=== PATIENT | male | born 1985 | race Caucasian/White ===

== ENCOUNTER 2024-09-08 10:10 | Day surgery (SDC) | payer MEDICAID, SELFPAY ==
--- NOTE | 2024-09-04 07:00 | EKG_ITS ---
[facility] Test Date: 2024-09-04 Pat Name: JOSEE VIDAL Department: Room: - Gender: Male Studio Manager: JESUS : 1985 Requested By: Gerri Gutierres Order Number: [id number] Reading MD: Gerri Gutierres Measurements Intervals [place] Rate: 69 P: 65 PA: 160 QRS: 61 QRSD: 128 T: 40 QT: 372 QTc: 401 Interpretive Statements SINUS RHYTHM RIGHT BUNDLE BRANCH BLOCK No previous ECG available for comparison /store/S0/[id number]/ecg/[id number]
[2024-09-04 07:49] VITALS: BMI 27.3
[2024-09-04 09:03] LABS: Basophils % (Auto) 1 % (0-2.5); Eosinophils # (Auto) 0.2 Thou/mm3 (0.0-0.5); Eosinophils % (Auto) 3 % (0-10); Hematocrit 43.7 % (41.0-53.0); Hemoglobin 15.2 g/dL (13.5-16.0); Immature Granulocytes % (Auto) 0 % (0-0); Immature Granulocytes Auto 0.02 Thou/mm3 (0.00-0.00); Lymphocytes # (Auto) 1.9 Thou/mm3 (1.0-4.8); Lymphocytes % (Auto) 32 % (10-50); Mean Corpuscular HGB Conc 34.8 g/dl (31.0-37.0); Mean Corpuscular Hemoglobin 31.6 pg (25.0-35.0); Mean Corpuscular Volume 91 fL (80-100); Monocytes # (Auto) 0.5 Thou/mm3 (0.0-0.8); Monocytes % (Auto) 9 % (0-12); Neutrophils # (Auto) 3.4 Thou/mm3 (1.8-7.7); Neutrophils % (Auto) 56 % (37-80); Nucleated Red Blood Cell % 0 /100 WBC (0); Platelet Count 254 Thou/mm3 (140-440); Red Blood Count 4.81 Miln/mm3 (4.50-5.90)
[2024-09-04 09:19] LABS: Anion Gap 5 (7-16); BUN/Creatinine Ratio 10 Ratio (12-20); Blood Urea Nitrogen 10 mg/dL (9-23); Calcium 10.3 mg/dL (8.3-10.6); Carbon Dioxide 29.8 mMol/L (20.0-31.0); Chloride 104 mMol/L (98-107); Estimated Creatinine Clearance 94.6 mL/min (>60); Glucose 106 mg/dL (74-106); Osmolality,Calculated 276 (275-295); Potassium 4.4 mMol/L (3.4-5.1); Sodium 139 mMol/L (136-145); eGFR > 60 See Note
[2024-09-08] VITALS (8 sets, daily range): BP systolic 124–140; BP diastolic 80–100; PULSE 77–117; RESP 12–20; TEMP 36.2–37.3; O2SAT 94–100; BMI 27.4
--- NOTE | 2024-09-08 10:53 | CHAP ---
Prayed with patient before upcoming procedure and gave words of encouragement.
[2024-09-08] MEDS: RINGERS LACTATED 500 ML 500 ML 20 ML IV (11:22)
--- NOTE | 2024-09-08 13:14 | PD.SUROPNT ---
Date of Procedure 09/08/24 Pre Op Diagnosis Incarcerated right inguinal hernia Post Op Diagnosis Incarcerated indirect right inguinal hernia Procedure Right inguinal hernia repair with mesh Findings Indirect right inguinal hernia with incarcerated small bowel Procedure Description Patient brought into the operating room in supine position. After administration of general endotracheal anesthesia, patient's right groin was shaved, prepped and draped in standard surgical manner. The right inguinal crease was anesthetized with half percent Marcaine. An approximately 8 cm incision was made and dissection was carried to subcutaneous tissue. The Rachel's fascia was divided and the external oblique aponeurosis was opened towards the external ring. The hernia sac and the spermatic cord structures were from the posterior aspect of the external oblique aponeurosis at the level of pubic tubercle. The hernia sac was then meticulously dissected off the spermatic cord structures at the level of internal ring. The hernia sac was opened and the contents that were incarcerated small bowel, reduced. The hernia sac was then ligated at the level of internal ring. The floor of inguinal canal was then reconstructed with ultra Pro proceed mesh. The mesh was secured with running 2-0 Prolene suture. The mesh secured medially to the pubic tubercle, superiorly into the conjoin tendon, inferiorly and to the shelving edge of inguinal ligament, the mesh was placed around the cord structures and tacked under the external oblique aponeurosis laterally. The area was copiously and thoroughly washed and irrigated, all the fluids were suctioned and the suction fluid returned clear. Hemostasis was adequate and satisfactory. External oblique aponeurosis was closed with running 2-0 Vicryl suture, and Rachel's fascia was closed with interrupted suture using 3-0 Vicryl. The incision was closed with 4-0 Monocryl in subcutaneous fashion. Instruments, needles and sponge counts were reported to be correct ?2. Patient tolerated the procedure well. He was extubated, breathing spontaneously and without difficulty and was transferred to postanesthesia care in stable condition. Anesthesia GETA and local Pathology / specimen Other (Hernia sac) Estimated Blood Loss 10 Condition Stable Disposition PACU Surgeon Gerri Gutierres MD Surgical Staff Operation Date: 09/08/24 12:30 Case Staff Anesthesiologist: Jasile Cano RNcertified control systems technician: Ashlyn Ornelas
--- NOTE | 2024-09-08 13:23 | SUR.PHASEI ---
1323: Pt. AAOx4, vitals stable, breathing unlabored, no complaint of pain or nausea, dressing to lower ABD CDI, no active bleed noted, report received from MD Cano and Jaci KNAPP.
--- NOTE | 2024-09-08 14:23 | SUR.PHASEII ---
1423: Pt. AAOx4, vitals stable, breathing unlabored, no complaint of pain or nausea, dressing to lower ABD CDI, no active bleed noted, pt. tolerated sips of water well, pt. ambulated to wheelchair with steady gait and no assist, no complications. Gave discharge instructions to the pt. and her ride, both verbalized understanding and had no further questions. Pt. left with all personal belongings.
== END 2024-09-08 14:23 | disposition home or self-care (01) ==
PROVIDERS: PCP Family Medicine; Referring Provider Surgery; Visit Provider Surgery
PROC: (CPT 49507; principal; 2024-09-08 12:30)
DX: K40.30 Unilateral inguinal hernia, with obstruction, without gangrene, not specified as recurrent (principal); Z01.810 Encounter for preprocedural cardiovascular examination
CPT/HCPCS: 49507; 36415; 80048; 85025; 93005; A4649; C1781; J0131; J0690; J1100; J2704; J2710; J2765; J3010; J3490; J7120; P9045; J1596

== ENCOUNTER 2025-04-07 20:30 | Emergency (ER) | payer MEDICAID, SELFPAY ==
[2025-04-07 20:32] VITALS: BMI 27.3
[2025-04-07 21:10] VITALS: BP 143/94; PULSE 67; RESP 18; TEMP 36.7; O2SAT 98
--- NOTE | 2025-04-07 21:16 | PD.EDRME ---
Rapid Medical Screening Exam RME Arrival date/time: 04/07/25 20:30 Chief Complaint: Back Pain/Injury Time Seen by Provider: 04/07/25 21:31 Vital signs: Vital Signs Temperature 98.1 F 04/07/25 21:10 Pulse Rate 67 04/07/25 21:10 Respiratory Rate 18 04/07/25 21:10 Blood Pressure 143/94 H 04/07/25 21:10 Pulse Oximetry (%) 98 04/07/25 21:10 Oxygen Delivery Method Room Air 04/07/25 21:10 Pulse ox is 98% room air Vital signs reviewed by provider: Yes RME Narrative: Patient developed right flank pain that began this afternoon. Upon returning home patient noticed a bloody urine.
--- NOTE | 2025-04-07 21:17 | XR_ITS ---
Examination: CT abdomen and pelvis without contrast. Coronal 3-D reconstructions. Sagittal 2-D reconstructions. Date and time of exam:April 07, 2025, 10:53 PM. INDICATIONS: Flank pain and hematuria today. CTDI: vol (mGy): 7.01. DLP: (mGycm): 420 Technique: Axial images of the abdomen have been obtained, 3 mm slice thickness Intravenous contrast material has not been administered. Low dose protocols were performed. One or more of the following dose reduction techniques were used; automated exposure control, adjustment of the mA and/or KV according to patient size, use of iterative reconstruction technique. Findings: No focal liver or splenic lesions No definite gallstones No pancreatic or adrenal mass 2 mm lower pole left renal calculus Minimal right hydronephrosis secondary to 2 mm proximal right ureteral calculus Normal appendix No bowel obstruction No bladder mass No prostatomegaly IMPRESSION: Minimal right hydronephrosis secondary to 2 mm proximal right ureteral calculus
[2025-04-07] MEDS: KETOROLAC INJ 60 MG/2 ML VIAL 30 MG IM (21:30)
[2025-04-07 21:57] LABS: Basophils % (Auto) 0 % (0-2.5); Eosinophils % (Auto) 0 % (0-10); Hematocrit 42.4 % (41.0-53.0); Hemoglobin 15.7 g/dL (13.5-16.0); Immature Granulocytes % (Auto) 0 % (0-0); Immature Granulocytes Auto 0.04 Thou/mm3 (0.00-0.00); Lymphocytes % (Auto) 8 % (10-50); Mean Corpuscular Hemoglobin 32.2 pg (25.0-35.0); Mean Corpuscular Volume 87 fL (80-100); Monocytes # (Auto) 0.4 Thou/mm3 (0.0-0.8); Monocytes % (Auto) 3 % (0-12); Neutrophils # (Auto) 10.8 Thou/mm3 (1.8-7.7); Neutrophils % (Auto) 88 % (37-80); Nucleated Red Blood Cell % 0 /100 WBC (0); Platelet Count 244 Thou/mm3 (140-440); RDW Standard Deviation 38.5 fL (35.1-43.9); Red Blood Count 4.87 Miln/mm3 (4.50-5.90); White Blood Count 12.3 Thou/mm3 (3.8-10.6)
[2025-04-07 22:14] LABS: Alanine Aminotransferase 26 U/L (10-49); Albumin, Serum 5.1 gm/dL (3.5-5.0); Albumin/Globulin Ratio 2.2 (1.2-2.2); Alkaline Phosphatase 89 U/L (46-116); Anion Gap 13 (7-16); Aspartate Amino Transferase 24 U/L (0-34); BUN/Creatinine Ratio 8 Ratio (12-20); Bilirubin,Total 1.3 mg/dL (0.3-1.2); Blood Urea Nitrogen 10 mg/dL (9-23); Calcium 9.7 mg/dL (8.3-10.6); Calcium (Corrected) 9.7 mg/dL (8.5-10.1); Carbon Dioxide 24.2 mMol/L (20.0-31.0); Chloride 105 mMol/L (98-107); Creatinine (Component) 1.2 mg/dL (0.6-1.3); Estimated Creatinine Clearance 84.3 mL/min (>60); Globulin 2.3 gm/dL (2.3-3.5); Glucose 130 mg/dL (74-106); Osmolality,Calculated 284 (275-295); Potassium 4.1 mMol/L (3.4-5.1); Sodium 142 mMol/L (136-145); Total Protein 7.4 gm/dL (5.7-8.2); eGFR > 60 See Note
[2025-04-07 23:49] LABS: Collection Type, Urine Clean Catch; Squamous Epithelial Cell,Urine 0 /hpf (0-5); WBC,Urine 0 /hpf (0-5)
[2025-04-08 00:11] LABS: Bacteria,Urine Rare; Bilirubin,Urine Negative (Negative); Blood,Urine 3+ (Negative); Clarity,Urine Turbid (Clear/Hazy); Glucose, Urine Negative (Negative); Ketones,Urine 3+ (Negative); Leukocyte Esterase,Urine Negative (Negative); Nitrite,Urine Negative (Negative); PH,Urine 6.5 (5.0-7.0); Protein,Urine 3+ (Neg - Trace); RBC,Urine 571 /hpf (0-3); Specific Gravity,Urine 1.036 (1.001-1.035); Urobilinogen,Urine Negative mg/dL (0.0-1.0)
[2025-04-08 00:12] LABS: Color,Urine Yellow (Lt Yel-Yel)
--- NOTE | 2025-04-08 00:26 | PD.EDBACK ---
ED Back Injury Pain RME/HPI General Chief Complaint: Back Pain/Injury Stated Complaint: R FLANK PAIN URINATING BLOOD Time Seen by Provider: 04/07/25 21:31 Arrival date/time: 04/07/25 20:30 RME / HPI RME / HPI Narrative: Patient developed right flank pain that began this afternoon. Upon returning home patient noticed a bloody urine. DR VELA MAIN ED EVALUATION: 39 y/o male with Hx of kidney stones presents to ED c/o right flank pain, hematuria, chills, and nausea x 12 hours. Patient denies dysuria or any other associated symptoms or aggravating factors. No modifying factors, no radiation, no migration. No pain reported overall after medication. No other concerns or complaints expressed at this time. Related Data Home Medications ?Medication ?Instructions ?Recorded ?Confirmed atorvastatin 20 mg tablet 20 mg PO DAILY 09/04/24 09/04/24 Previous Rx's ?Medication ?Instructions ?Recorded docusate sodium 100 mg capsule 100 mg PO BID #40 caps 09/08/24 (Colace) hydrocodone 5 mg-acetaminophen 325 1 tab PO Q6H PRN pain (scale score 09/08/24 mg tablet 7-10) #20 tabs ibuprofen 600 mg tablet 600 mg PO Q8H PRN pain (scale 09/08/24 score 4-6) #15 tabs hydrocodone 5 mg-acetaminophen 325 1 tab PO Q6H PRN pain #10 tabs 04/08/25 mg tablet ibuprofen 600 mg tablet 600 mg PO Q6H PRN pain #30 tabs 04/08/25 tamsulosin 0.4 mg capsule 0.4 mg PO QDAY #14 caps 04/08/25 Allergies Allergy/AdvReac Type Severity Reaction Status Date / Time NKA* Allergy Uncoded 04/07/25 20:37 Review of Systems Review of Systems Systems Reviewed: All systems reviewed, normal except as documented Past Medical History Past Medical History CARDIAC: Positive Cardiac Disorders and Hypercholesterolemia GENITOURINARY: Positive Genitourinary Disorders, Kidney Stones and Inguinal Hernia Family History FAMILY HISTORY: Positive Family Respiratory Disorders, Family Cancer and Family Surgery ED Exam Narrative Physical exam: GENERAL APPEARANCE: alert and oriented x 4, well-developed, well-nourished, no acute distress VITALS: All vitals were reviewed and the pulse ox is 98% on room air, which is normal according to my interpretation. HEENT: Normocephalic, atraumatic; pupils equal, round, reactive to light; EOMI; mucous membranes pink, moist; oropharynx clear NECK: Supple LUNGS: CTABL; no wheezes, no rales, no rhonchi HEART: Regular rate, regular rhythm; normal S1, S2; no murmurs ABDOMEN: non distended; normal BS; soft, no tenderness, no guarding, no rebound; no masses, no organomegaly, no hernia BACK: no CVA tenderness EXTREMITIES: atraumatic; no edema NEUROLOGIC: awake; alert and oriented x4; cranial nerves II-XII grossly intact; no focal sensory or motor deficits PSYCHIATRIC: appropriate mood and affect SKIN: warm, dry, normal color; no rashes Course Quality Measures none Orders Category Date Time Status CT abdomen pelvis wo con Stat Exams 04/07/25 21:17 Completed CBC Stat Lab 04/07/25 21:35 Completed Comprehensive Metabolic Panel Stat Lab 04/07/25 21:35 Completed Urinalysis Stat Lab 04/07/25 23:35 Completed HYDROcodone*/APAP 5/325 [[place] 5/325] Med 04/08/25 00:25 Once 1 tab PO X1 ONE Ketorolac Inj [Toradol Inj] Med 04/07/25 21:18 Discontinued 30 mg IM X1 ONE Tamsulosin HCl [Flomax] Med 04/08/25 00:25 Once 0.4 mg PO X1 ONE Vital Signs Vital signs: Vital Signs Temperature 98.1 F 04/07/25 21:10 Pulse Rate 67 04/07/25 21:10 Respiratory Rate 18 04/07/25 21:10 Blood Pressure 143/94 H 04/07/25 21:10 Pulse Oximetry (%) 98 04/07/25 21:10 Oxygen Delivery Method Room Air 04/07/25 21:10 Back Pain / Injury MDM Narrative MDM Narrative:: Scribe Attestation: Amanda Rodriguez, surjit scribing for and in the presence of Dr. Vela. Provider Notation: Although this document has been carefully reviewed, there may still be some phonetic and other typographical errors.? These errors are purely grammatical due to imperfections in the software program and should not be construed in any way to? compromise the substance of the patient's medical care during this visit. Patient data External records reviewed:: [facility] previous records (No prior ED records available for review.) Clinical information provided by:: patient Social determinants that could affect healthcare access:: none Patient has the following chronic illnesses:: Hypercholesterolemia, Kidney Stones and Inguinal Hernia How is presenting disease/condition affected by chronic disease/condition?: exacerbated by Evaluation data The following diagnostics were reviewed and interpreted by me:: lab results and radiology exam(s) Lab and/or radiology exams considered but not ordered:: None Interpretation Summary: RADIOLOGY Abdomen/Pelvis CT: Patient: JOSEE VIDAL. Record#: [id number] Birthdate: 1985 Age/Sex: 39 / M Location: [facility] Attending Dr: Ordering Physician: Alexander Torres PA-C Date of Service: 04/07/25 Procedure(s): CT abdomen pelvis wo [facility] Accession Number(s): [id number] cc: Keegan Case MD; José Miguel Carter MD; Alexander Torres PA-C~ Examination: CT abdomen and pelvis without contrast. Coronal 3-D reconstructions. Sagittal 2-D reconstructions. Date and time of exam:April 07, 2025, 10:53 PM. INDICATIONS: Flank pain and hematuria today. CTDI: vol (mGy): 7.01. DLP: (mGycm): 420 Technique: Axial images of the abdomen have been obtained, 3 mm slice thickness Intravenous contrast material has not been administered. Low dose protocols were performed. One or more of the following dose reduction techniques were used; automated exposure control, adjustment of the mA and/or KV according to patient size, use of iterative reconstruction technique. Findings: No focal liver or splenic lesions No definite gallstones No pancreatic or adrenal mass 2 mm lower pole left renal calculus Minimal right hydronephrosis secondary to 2 mm proximal right ureteral calculus Normal appendix No bowel obstruction No bladder mass No prostatomegaly IMPRESSION: Minimal right hydronephrosis secondary to 2 mm proximal right ureteral calculus Dictated By: José Miguel Carter MD Signed By: <Electronically signed by José Miguel Carter MD in OV> 04/07/25 2314 Medications / Prescriptions Medications or Prescriptions considered but not ordered:: None Medication administrations:: Medication Administration History Hydrocodone Bitart/Acetaminophen (Hydrocodone/Apap 5/325 Tablet) 1 tab PO X1 ONE Stop: 04/08/25 00:26 Tamsulosin HCl (Tamsulosin Hcl 0.4 Mg Capsule) 0.4 mg PO X1 ONE Stop: 04/08/25 00:26 Discontinued Medications Ketorolac Tromethamine (Ketorolac Inj 60 Mg/2 Ml Vial) 30 mg IM X1 ONE Stop: 04/07/25 21:19 Last Admin: 04/07/25 21:30 Dose: 30 mg Documented By: See above if any Consultations Consultation(s) initiated? (list below): No Diagnosis Differential diagnosis back pain/injury: lumbar radiculopathy, sciatica, strain of lumbar region, renal colic, pyelonephritis, thoracic back pain, AAA and discitis Most likely diagnosis given after review of the tests above:: Right ureteral stone Admission Indicated Admission indicated?: not indicated Explain why admission is indicated or not indicated:: Patient does not meet admission criteria. Admission Request Was there a request for admission?: No Disposition Plan Disposition Plan: Discharge Discharge Attestation Discharge Attestation: The patient and all family members were given an opportunity to ask questions and understood the discharge instructions. Discharge instructions specifically effects, indications for sooner follow up or return to the emergency department, and the expected course of current diagnosis. Patient condition: Stable Discharge Plan Plan Patient Disposition: HOME (Self Care) Prescriptions/Referrals Prescriptions/Med Rec: New hydrocodone-acetaminophen 5-325 mg tablet 1 tab PO Q6H MDD 9 PRN (Reason: pain) Qty: 10 0RF tamsulosin 0.4 mg capsule 0.4 mg PO QDAY Qty: 14 0RF ibuprofen 600 mg tablet 600 mg PO Q6H PRN (Reason: pain) Qty: 30 0RF No Action atorvastatin 20 mg tablet 20 mg PO DAILY docusate sodium [Colace] 100 mg capsule 100 mg PO BID Qty: 40 0RF hydrocodone-acetaminophen 5-325 mg tablet 1 tab PO Q6H MDD 4 PRN (Reason: pain (scale score 7-10)) Qty: 20 0RF ibuprofen 600 mg tablet 600 mg PO Q8H PRN (Reason: pain (scale score 4-6)) Qty: 15 0RF Referrals: Keegan Case MD [Primary Care Provider] - In 1 week Problem List Clinical Impression: Right ureteral stone Patient/Caregiver Discharge Instructions Education Materials: ED Kidney Stone w/ Colic Print Language: Pashto Stand Alone Forms: Stella Award Info., Patient Portal Info Letter
[2025-04-08] MEDS: HYDROcodone/APAP 5/325 TABLET 1 TAB PO (00:42)
[2025-04-08] MEDS: TAMSULOSIN HCL 0.4 MG CAPSULE PO (00:43)
== END 2025-04-08 00:44 | disposition home or self-care (01) ==
PROVIDERS: Physician Assistant; Emergency Provider Emergency Medicine; PCP Family Medicine
DX: N13.2 Hydronephrosis with renal and ureteral calculous obstruction (principal)
CPT/HCPCS: 36415; 74176; 80053; 81001; 85025; 96372; 99284; J1885; A9270